=== PATIENT | female | born 1970 | race Caucasian/White ===

== ENCOUNTER → 2016-12-31 | Outpatient (REF) | payer OTHER | LOC: M SFHCWAGY 09:09 | PROVIDERS: ATTEND Nurse Practitioner Family | DX: Z12.4 Encounter for screening for malignant neoplasm of cervix (principal) ==

== ENCOUNTER → 2016-12-31 | Outpatient (CLI) | payer OTHER ==
--- NOTE | 2016-12-31 10:44 | REPMRS ---
Patient History The patient states she had a clinical breast exam in 12/2016. Family history of colorectal cancer in maternal grandfather at age 50 or over and breast cancer in paternal aunt under age 50. Digital Woman Screen Mammo: December 31, 2016 - Exam #: [id number] Bilateral CC and MLO view(s) were taken. Technologist: Negrita Foss Technologist Prior study comparison: September 26, 2015, digital woman screen mammo performed at [facility]. August 11, 2014, digital woman screen mammo performed at [facility]. FINDINGS: The breast tissue is extremely dense which could obscure a lesion on mammography. There has been no change in the appearance of the mammogram from the prior studies. There is diffuse amount of extremely dense residual fibroglandular tissue which is fairly symmetric. There is no interval development of dominant mass, architectural distortion, or clustered microcalcification typical of malignancy. There is a benign appearing intramammary node in the upper outer quadrant of the right breast. Scattered lymph nodes are seen in the right axilla. No significant changes when compared with prior studies. ASSESSMENT: BI-RADS/ACR category 1 mammogram. Negative. Recommendation Routine screening mammogram in 1 year (for women over age 40). This mammogram was interpreted with the aid of an FDA-approved computer-aided dectection system. A. Negative x-ray reports should not delay biopsy if a dominant or clinically suspicious mass is present. B. Four to eight percent of cancers are not identified by mammography. C. Adenosis and dense breast may obscure an underlying neoplasm. Electronically Signed By: Facundo Rogers MD 12/31/16 0522
== END ==
LOC: M WHC 08:13
PROVIDERS: ATTEND Nurse Practitioner Family
DX: Z12.31 Encounter for screening mammogram for malignant neoplasm of breast (principal)

== ENCOUNTER 2017-08-13 09:27 | Day surgery (SDC) | payer OTHER ==
[~2017-08-13] VITALS: Ht 162.6 cm; Wt 73.9 kg
[~2017-08-13 09:27] MED LIST: AMOX875T PO; CETI10TA PO; LEVO50TA5 PO
[2017-08-13] MEDS ORDERED: NS 1,000 ML IV ONE (10:00)
[2017-08-13] MEDS ORDERED: PROPOFOL 200 MG/20 ML VIAL As Ordered ONE (10:15)
[2017-08-13] MEDS ORDERED: LIDOCAINE 2% INJ 100 MG/5 ML SDV (FOR ANES.) As Ordered ONE (10:15)
--- NOTE | 2017-08-13 10:35 | ROOR ---
Patient Name: Amparo Lai Procedure Date: 08/13/2017 10:18 AM Date of : 1970 Age: 47 Room: [facility] Gender: Female Note Status: Finalized Procedure: Colonoscopy Indications: Rectal bleeding Providers: Deangelo Howe Jr, MD Referring MD: Vivien Mcfarlane NP Requesting Provider: Medicines: Propofol per Anesthesia Complications: No immediate complications. Procedure: Pre-Anesthesia Assessment: - Prior to the procedure, a History and Physical was performed, and patient medications and allergies were reviewed. The patient is competent. The risks and benefits of the procedure and the sedation options and risks were discussed with the patient. All questions were answered and informed consent was obtained. Patient identification and proposed procedure were verified by the physician and the nurse in the pre-procedure area and in the procedure room. Mental Status Examination: alert and oriented. Airway Examination: normal oropharyngeal airway and neck mobility. Respiratory Examination: clear to auscultation. CV Examination: normal. ASA Grade Assessment: II - A patient with mild systemic disease. After reviewing the risks and benefits, the patient was deemed in satisfactory condition to undergo the procedure. The anesthesia plan was to use moderate sedation / analgesia (conscious sedation). Immediately prior to administration of medications, the patient was re-assessed for adequacy to receive sedatives. The heart rate, respiratory rate, oxygen saturations, blood pressure, adequacy of pulmonary ventilation, and response to care were monitored throughout the procedure. The physical status of the patient was re-assessed after the procedure. The Colonoscope was introduced through the anus and advanced to the cecum, identified by appendiceal orifice and ileocecal valve. The colonoscopy was performed without difficulty. The patient tolerated the procedure well. The quality of the bowel preparation was adequate and good. Findings: Non-bleeding external and internal hemorrhoids were found during perianal exam and during endoscopy. The hemorrhoids were moderate and Grade II (internal hemorrhoids that prolapse but reduce spontaneously). Multiple small and large-mouthed diverticula were found in the sigmoid colon. The rectum, recto-sigmoid colon, descending colon, transverse colon, ascending colon, cecum, appendiceal orifice and ileocecal valve appeared normal. Impression: - Non-bleeding external and internal hemorrhoids. - Diverticulosis in the sigmoid colon. - The rectum, recto-sigmoid colon, descending colon, transverse colon, ascending colon, cecum, appendiceal orifice and ileocecal valve are normal. - No specimens collected. Recommendation: - Discharge patient to home (ambulatory). - Repeat colonoscopy in 10 years for screening purposes. Deangelo Howe MD Deangelo Howe Jr, MD 08/13/2017 10:34:39 AM This report has been signed electronically. Number of Addenda: 0 Note Initiated On: 08/13/2017 10:18 AM Estimated Blood Loss: Estimated blood loss: none.
[2017-08-13 10:57] VITALS: BP 129/88
== END 2017-08-13 10:58 | disposition home or self-care (01) ==
LOC: M OPP 09:27
PROVIDERS: ATTEND Surgery
DX: K64.4 Residual hemorrhoidal skin tags (principal); K64.1 Second degree hemorrhoids; K57.30 Diverticulosis of large intestine without perforation or abscess without bleeding; E06.9 Thyroiditis, unspecified; E03.9 Hypothyroidism, unspecified; Z79.899 Other long term (current) drug therapy; J30.89 Other allergic rhinitis; Z83.71 Family history of colonic polyps

== ENCOUNTER → 2017-12-31 | Outpatient (CLI) | payer OTHER ==
[2017-12-31 10:28] LABS: BASO % 0.4 % (0.0-1.0); EOS # 0.1 10^3/uL (0.0-0.50); HEMATOCRIT 41.2 % (36.0-47.0); HEMOGLOBIN 13.5 g/dl (12.0-16.0); IMMATURE GRANULOCYTE % 0.3 % (0-3.0); LYMPH % 8.5 % (24.0-44.0); MEAN CORPUSCULAR HEMOGLOBIN 28.4 pg (27.0-33.0); MEAN CORPUSCULAR HGB CONC 32.8 g/dl (32.0-36.5); MEAN CORPUSCULAR VOLUME 86.7 fl (80.0-96.0); MONO # 0.8 10^3/uL (0.0-0.8); MONO % 7.3 % (0.0-5.0); NEUTROPHILS # 9.4 10^3/uL (1.8-7.7); NEUTROPHILS % 82.5 % (36.0-66.0); PLATELET COUNT, AUTOMATED 335 10^3/uL (150-450); RED BLOOD COUNT 4.75 10^6/uL (4.00-5.40); RED CELL DISTRIBUTION WIDTH 13.1 % (11.5-14.5); WHITE BLOOD COUNT 11.4 10^3/uL (4.0-10.0)
[2017-12-31 13:46] LABS: APPEARANCE, URINE MANUAL HAZY (CLEAR); BILIRUBIN, URINE MANUAL NEGATIVE (NEGATIVE); COLOR, URINE MANUAL LT YELLOW (YELLOW); GLUCOSE, URINE (UA) MANUAL NEGATIVE (NEGATIVE); KETONE, URINE MANUAL NEGATIVE (NEGATIVE); PROTEIN, URINE MANUAL NEGATIVE (NEGATIVE); SPECIFIC GRAVITY,URINE MANUAL 1.003 (1.002-1.035); UROBILINOGEN, URINE MANUAL NORMAL (NORMAL)
[2017-12-31 13:47] LABS: BACTERIA, URINE SMALL AMOUNT; BLOOD URINE MANUAL NEGATIVE (NEGATIVE); HYALINE CAST, URINE NONE SEEN /lpf (0-1); LEUKOCYTE ESTERASE, URINE MAN NEGATIVE (NEGATIVE); MICROSCOPIC EXAM PERFORMED; MICROSCOPIC INDICATED? MAN YES (NO); NITRITE, URINE MANUAL NEGATIVE (NEGATIVE); RBC, URINE 0-1 /hpf (0-3); SQUAMOUS EPITHELIAL CELL URINE SMALL AMOUNT /hpf (SMALL AMT); WBC, URINE 0-1 /hpf (0-3)
== END ==
LOC: M WUC 08:59
DX: R10.814 Left lower quadrant abdominal tenderness (principal)
CPT/HCPCS: 85025

== ENCOUNTER → 2018-02-09 | Outpatient (CLI) | payer OTHER | LOC: M WHC 08:24 | DX: Z12.31 Encounter for screening mammogram for malignant neoplasm of breast (principal) | CPT/HCPCS: 77067 ==

== ENCOUNTER → 2018-06-16 | Outpatient (REF) | payer OTHER | LOC: M LAB REF 12:50 | DX: N39.0 Urinary tract infection, site not specified (principal) ==

== ENCOUNTER → 2019-02-10 | Outpatient (CLI) | payer OTHER ==
--- NOTE | 2019-02-10 11:00 | REPMRS ---
Patient History The patient states she had a clinical breast exam in 02/2019. Family history of breast cancer at age 40 in paternal aunt, colorectal cancer at age 50 or over in maternal grandfather, breast cancer at age 60 in maternal aunt, breast cancer at age 50 in paternal cousin. No Hormone Replacement Therapy 3D TOMOSYNTHESIS WAS PERFORMED. Digital Woman Screen Mammo: February 10, 2019 - Exam #: [id number] Bilateral CC and MLO view(s) were taken. Technologist: Ashley Funes, Technologist Prior study comparison: February 09, 2018, digital woman screen mammo performed at [facility]. December 31, 2016, digital woman screen mammo performed at [facility]. FINDINGS: The breast tissue is extremely dense which could obscure a lesion on mammography. There is no evidence of cancer on this mammogram. Assessment: BI-RADS/ACR category 2 mammogram. Benign Findings. Recommendation Routine screening mammogram of both breasts in 1 year (for women over age 40). This mammogram was interpreted with the aid of an FDA-approved computer-aided dectection system. Electronically Signed By: Jey Yancey MD 02/10/19 1100
== END ==
LOC: M WHC 09:00
PROVIDERS: ATTEND Nurse Practitioner Family
DX: Z12.31 Encounter for screening mammogram for malignant neoplasm of breast (principal)

== ENCOUNTER → 2019-02-10 | Outpatient (REF) | payer OTHER ==
[2019-02-15 14:54] LABS: HPV HYBRID CAPTURE II Negative (NEGATIVE)
== END ==
LOC: M SFHCWAGY 09:45
PROVIDERS: ATTEND Nurse Practitioner Family
DX: Z12.4 Encounter for screening for malignant neoplasm of cervix (principal)
CPT/HCPCS: 87624; G0123

== ENCOUNTER → 2019-08-15 | Outpatient (CLI) | payer OTHER ==
[~2019-08-15] MED LIST changes: +PROHANCE 279.3MG/ML 15ML VIAL (A9576) As Ordered ONE
--- NOTE | 2019-08-15 15:27 | REP ---
Bilateral breast MRI study without and with IV gadolinium: History: Positive family history of breast carcinoma. Dense breast parenchyma on mammography. High-risk screening. Technique: Three Skye MRI imaging was performed with a dedicated breast coil. Axial, coronal, and sagittal T1 and T2-weighted scans were obtained with and without fat saturation in the usual fashion. The study includes dynamically acquired post gadolinium enhanced imaging subtraction imaging. Maximal intensity projection and multiplanar re-formation imaging is included as well. The study was interpreted with the aid of [employer], an FDA approved computer-aided detection (CAD) software program, on a dedicated breast MRI work station. The gadolinium enhancement dose is 15 mL of intravenous ProHance. Findings: There is a 1.8 cm cyst in the superolateral quadrant of the left breast posterior third. There is no evidence of axillary lymphadenopathy on T2-weighted scans. There is a fairly marked pattern of fibroglandular tissue bilaterally in a pattern which is roughly symmetric. High-resolution pre and postcontrast T1 and T2-weighted scans show no suspicious morphologic abnormality. There is a moderate pattern of background parenchymal enhancement. Dynamically acquired sequential post contrast images show no suspicious area of enhancement and/or washout in either breast to suggest malignancy. Subtraction images are unremarkable. Impression: BIRADS category 2 benign findings. Patient's whose lifetime breast cancer risk assessment is greater than 20% merit annual screening breast MRI scanning in addition to screening mammography. Electronically Signed by Raul Adorno MD 08/15/2019 05:11 P
== END ==
LOC: M RAD 09:38
PROVIDERS: ATTEND Nurse Practitioner Family
DX: Z80.3 Family history of malignant neoplasm of breast (principal)
CPT/HCPCS: A9576; C8908

== ENCOUNTER → 2019-10-14 | Outpatient (CLI) | payer OTHER ==
[~2019-10-14] MED LIST changes: -PROHANCE 279.3MG/ML 15ML VIAL (A9576) As Ordered ONE
--- NOTE | 2019-10-14 09:45 | REP ---
INDICATION: Lumbar spondylosis PROCEDURE: MR lumbar spine, multiplanar T1, T2 and STIR images obtained. COMPARISON STUDIES: no prior similar studies FINDINGS: There is a [id number] multilevel degenerative disc disease loss of disc height and disc desiccation seen diffusely throughout the lumbar spine. Vertebral heights are well preserved. No malalignments. No limiting canal or foraminal stenosis. No focal disc herniations. On the STIR images, no significant STIR signal abnormality to suggest soft tissue or ligamentous injury. IMPRESSION: No acute findings. Minor degenerative changes. No limiting canal or foraminal stenosis or disc herniation. Electronically Signed by Sanjiv Sears MD 10/14/2019 09:35 A
== END ==
LOC: M PLARAD 08:01
PROVIDERS: ATTEND Orthopaedic Surgery
DX: M47.896 Other spondylosis, lumbar region (principal)

== ENCOUNTER → 2020-02-13 | Outpatient (CLI) | payer OTHER ==
--- NOTE | 2020-02-13 09:35 | REPMRS ---
Patient History The patient states she had a clinical breast exam in February 2020. Family history of breast cancer at age 40 in paternal aunt, colorectal cancer at age 50 or over in maternal grandfather, breast cancer at age 60 in maternal aunt, breast cancer at age 50 in paternal cousin. No Hormone Replacement Therapy Digital Woman Screen Mammo: February 13, 2020 - Exam #: [id number] Bilateral CC and MLO view(s) were taken. Technologist: Carol Morel, Technologist Prior study comparison: February 10, 2019, bilateral digital woman screen mammo performed at [facility]. February 09, 2018, digital woman screen mammo performed at [facility]. December 31, 2016, digital woman screen mammo performed at [facility]. FINDINGS: The breast tissue is heterogeneously dense. This may lower the sensitivity of mammography. The Volpara volumetric breast density category is: C. There is a moderate amount of heterogeneously dense fibroglandular tissue which is fairly symmetric. There is no interval development of dominant mass, architectural distortion, or grouped microcalcification typical of malignancy. There has been no change in the appearance of the mammogram from the prior studies. 3-D tomosynthesis shows no additional findings. Assessment: BI-RADS/ACR category 1 mammogram. Negative Mammogram. Recommendation Routine screening mammogram of both breasts in 1 year (for women over age 40). This patient's Lifetime Breast Cancer RIsk is estimated at 17.7 %. This mammogram was interpreted with the aid of an FDA-approved computer-aided dectection system. Electronically Signed By: Yfn Adorno MD 02/13/20 0935
== END ==
LOC: M WHC 08:12
PROVIDERS: ATTEND Nurse Practitioner Family
DX: Z12.31 Encounter for screening mammogram for malignant neoplasm of breast (principal)

== ENCOUNTER → 2020-04-03 | Outpatient (RCR) | payer OTHER | END | disposition home or self-care (01) | LOC: M PT 13:16 | PROVIDERS: ATTEND Nurse Practitioner Family | DX: Z51.89 Encounter for other specified aftercare (principal); N39.3 Stress incontinence (female) (male); N81.10 Cystocele, unspecified ==

== ENCOUNTER 2020-05-03 15:45 | Outpatient (RCR) | payer OTHER | END 2020-05-04 | LOC: M PT 15:45 | PROVIDERS: ATTEND Nurse Practitioner Family | DX: N39.3 Stress incontinence (female) (male) (principal); N81.10 Cystocele, unspecified ==

== ENCOUNTER 2020-05-10 15:45 | Outpatient (RCR) | payer OTHER | END 2020-06-04 | LOC: M PT 15:45 | PROVIDERS: ATTEND Nurse Practitioner Family | DX: N39.3 Stress incontinence (female) (male) (principal); N81.10 Cystocele, unspecified ==

== ENCOUNTER → 2021-04-25 | Outpatient (REF) | payer OTHER | LOC: M SFHCWAGY 13:06 | PROVIDERS: ATTEND Advanced Practice Midwife | DX: Z12.4 Encounter for screening for malignant neoplasm of cervix (principal) ==

== ENCOUNTER → 2021-04-25 | Outpatient (CLI) | payer OTHER ==
--- NOTE | 2021-04-25 10:46 | REPMRS ---
Patient History The patient states she had a clinical breast exam in April 2021. Family history of breast cancer at age 40 in paternal aunt, colorectal cancer at age 50 or over in maternal grandfather, breast cancer at age 60 in maternal aunt, breast cancer at age 50 in paternal cousin, colorectal cancer at age 81 in maternal aunt. No Hormone Replacement Therapy Patient states no breast complaints today. Patient has signed MRS History Sheet. Digital Woman Screen Mammo: April 25, 2021 - Exam #: [id number] Bilateral CC and MLO view(s) were taken. Technologist: Annia Mejia, Technologist Prior study comparison: February 13, 2020, bilateral digital woman screen mammo performed at [facility]. February 10, 2019, bilateral digital woman screen mammo performed at [facility] [place]. February 09, 2018, digital woman screen mammo performed at [facility] [place]. FINDINGS: The breast tissue is heterogeneously dense. This may lower the sensitivity of mammography. The Volpara volumetric breast density category is: C. There is a moderate amount of heterogeneously dense fibroglandular tissue which is fairly symmetric. There is no interval development of dominant mass, architectural distortion, or grouped microcalcification typical of malignancy. There has been no change in the appearance of the mammogram from the prior studies. 3-D tomosynthesis shows no additional findings. Assessment: BI-RADS/ACR category 1 mammogram. Negative Mammogram. Recommendation Routine screening mammogram of both breasts in 1 year (for women over age 40). This patient's [facility] Lifetime Breast Cancer RIsk is estimated at 17.4 %. This mammogram was interpreted with the aid of an FDA-approved computer-aided dectection system. Electronically Signed By: Yfn Adorno MD 04/25/21 0955
== END ==
LOC: M WHC 09:19
PROVIDERS: ATTEND Advanced Practice Midwife
DX: Z12.31 Encounter for screening mammogram for malignant neoplasm of breast (principal)

== ENCOUNTER → 2021-05-16 | Outpatient (CLI) | payer OTHER ==
--- NOTE | 2021-05-16 08:50 | REP ---
INDICATION: IRREG MENSES/N92.6. COMPARISON: 04/17/2009. TECHNIQUE: Multiple ultrasonographic images of the pelvis including transabdominal, endovaginal and Doppler ultrasound. FINDINGS: The bladder is adequately distended. The uterus is anteverted and enlarged measuring 11.2 x 5.4 x 6.1 cm. There are nabothian cysts in the cervix, the largest measuring up to 1.9 cm x 1.4 cm x 1.8 cm. The endometrium is not thickened measuring up to 5 mm. Right ovary: The right ovary could not be visualized on either transabdominal or endovaginal ultrasound. Left ovary: The left ovary is normal size measuring 2.3 x 1.7 x 1.9 cm. There is vascular flow within the Doppler resistive index measuring 0.58. There is no free fluid in the pelvis. IMPRESSION: Diffusely enlarged uterus. No endometrial thickening. The right ovary could not be visualized. The left ovary is unremarkable. Cervical nabothian cysts. No free pelvic fluid. <Electronically signed by Jey Whitaker > 05/16/21 0895
== END ==
LOC: M WHC 07:55
PROVIDERS: ATTEND Advanced Practice Midwife
DX: N92.6 Irregular menstruation, unspecified (principal)

== ENCOUNTER → 2021-11-07 | Outpatient (CLI) | payer OTHER ==
[~2021-11-07] MED LIST changes: +PROHANCE 279.3MG/ML 15ML VIAL As Ordered ONE
== END ==
LOC: M RAD 14:34
PROVIDERS: ATTEND Advanced Practice Midwife
DX: Z12.31 Encounter for screening mammogram for malignant neoplasm of breast (principal)

== ENCOUNTER → 2022-05-14 | Outpatient (CLI) | payer OTHER ==
[~2022-05-14] MED LIST changes: -PROHANCE 279.3MG/ML 15ML VIAL As Ordered ONE
== END ==
LOC: M WHC 07:10
PROVIDERS: ATTEND Nurse Practitioner Family
DX: Z12.31 Encounter for screening mammogram for malignant neoplasm of breast (principal)

== ENCOUNTER → 2022-05-14 | Outpatient (REF) | payer OTHER | LOC: M PLALAB 08:47 | PROVIDERS: ATTEND Nurse Practitioner Family | DX: Z12.4 Encounter for screening for malignant neoplasm of cervix (principal) ==

== ENCOUNTER → 2023-05-15 | Outpatient (REF) | payer OTHER | LOC: M PLALAB 12:58 | PROVIDERS: ATTEND Nurse Practitioner Family | DX: Z12.4 Encounter for screening for malignant neoplasm of cervix (principal) | CPT/HCPCS: 87624; G0123 ==

== ENCOUNTER → 2023-05-15 | Outpatient (CLI) | payer OTHER | LOC: M WHC 08:01 | PROVIDERS: ATTEND Nurse Practitioner Family | DX: Z12.31 Encounter for screening mammogram for malignant neoplasm of breast (principal) ==

== ENCOUNTER → 2023-11-11 | Outpatient (REF) | payer OTHER ==
[2023-11-11 18:52] LABS: C REACTIVE PROTEIN QUANTITATIV < 0.40 MG/DL (<1.0)
[2023-11-11 18:56] LABS: RHEUMATOID FACTOR QUANT < 3.5 IU/ML (<14)
[2023-11-11 18:58] LABS: FREE T3 3.1 PG/ML (2.3-4.2)
[2023-11-11 19:00] LABS: THYROID PEROXIDASE ANTIBODY > 1300.0 U/ML (<60.0)
== END ==
LOC: M LAB REF 17:37
PROVIDERS: ATTEND Physician Assistant Medical
DX: Z11.59 Encounter for screening for other viral diseases (principal); E06.3 Autoimmune thyroiditis

== ENCOUNTER → 2024-06-09 | Outpatient (CLI) | payer OTHER | LOC: M WHC 13:53 | PROVIDERS: ATTEND Nurse Practitioner Family | DX: Z12.31 Encounter for screening mammogram for malignant neoplasm of breast (principal) ==

== ENCOUNTER → 2024-06-09 | Outpatient (REF) | payer OTHER ==
[2024-06-11 11:57] LABS: HPV APTIMA Not Detected (Not Detected)
== END ==
LOC: M SFHCWAGY 18:05
PROVIDERS: ATTEND Nurse Practitioner Family
DX: Z12.4 Encounter for screening for malignant neoplasm of cervix (principal)
CPT/HCPCS: 87624; G0123

== ENCOUNTER → 2025-06-20 | Outpatient (CLI) | payer OTHER ==
[~2025-06-20] MED LIST changes: +PROHANCE 279.3MG/ML 15ML VIAL ONE
== END ==
LOC: M PLAIMG 13:27
PROVIDERS: ATTEND Physician Assistant Medical
DX: R92.30 Dense breasts, unspecified (principal); Z80.3 Family history of malignant neoplasm of breast; N60.11 Diffuse cystic mastopathy of right breast; N60.12 Diffuse cystic mastopathy of left breast
CPT/HCPCS: A9576; C8908

== ENCOUNTER → 2025-06-27 | Outpatient (REF) | payer OTHER ==
[~2025-06-27] MED LIST changes: -PROHANCE 279.3MG/ML 15ML VIAL ONE
[2025-06-29 11:51] LABS: HPV APTIMA Not Detected (Not Detected)
== END ==
LOC: M PLALAB 08:12
PROVIDERS: ATTEND Physician Assistant
DX: Z12.4 Encounter for screening for malignant neoplasm of cervix (principal)
CPT/HCPCS: 87624; G0123